=== PATIENT | female | born 1960 | race Caucasian/White ===

== ENCOUNTER → 2018-08-13 | Outpatient (CLI) | payer OTHER ==
[2018-08-13 17:41] LABS: BASO % 0.4 % (0.0-1.0); EOS % 2.3 % (0.0-3.0); IMMATURE GRANULOCYTE % 0.4 % (0-3.0); MEAN CORPUSCULAR HEMOGLOBIN 29.1 pg (27.0-33.0); MEAN CORPUSCULAR HGB CONC 32.6 g/dl (32.0-36.5); MEAN CORPUSCULAR VOLUME 89.4 fl (80.0-96.0); MONO % 11.8 % (0.0-5.0); NEUTROPHILS % 56.1 % (36.0-66.0); PLATELET COUNT, AUTOMATED 158 10^3/uL (150-450); RED BLOOD COUNT 4.81 10^6/uL (4.00-5.40); RED CELL DISTRIBUTION WIDTH 13.3 % (11.5-14.5); WHITE BLOOD COUNT 5.6 10^3/uL (4.0-10.0)
[2018-08-13 17:59] LABS: RHEUMATOID FACTOR QUANT < 10.0 IU/ML (<15.0)
[2018-08-13 17:59] LABS: C REACTIVE PROTEIN QUANTITATIV < 0.30 MG/DL (0.00-0.30)
[2018-08-13 19:55] LABS: ERYTHROCYTE SEDIMENTATION RATE 10 mm/hr (0-30)
[2018-08-17 00:07] LABS: ANTINUCLEAR ANTIBODIES DIRECT Negative (Negative); Lyme Disease IgG/IgM Antibodie <0.91 ISR (0.00-0.90); Lyme Disease IgM Ab Quantitati <0.80 index (0.00-0.79)
== END ==
LOC: M SMT 12:09
DX: G56.03 Carpal tunnel syndrome, bilateral upper limbs (principal)
CPT/HCPCS: 86140

== ENCOUNTER → 2018-10-04 | Outpatient (CLI) | payer OTHER ==
[2018-10-04 13:44] LABS: BASO % 0.2 % (0.0-1.0); EOS # 0.1 10^3/uL (0.0-0.50); HEMATOCRIT 43.4 % (36.0-47.0); HEMOGLOBIN 14.5 g/dl (12.0-15.5); IMMATURE GRANULOCYTE % 0.3 % (0-3.0); LYMPH # 1.5 10^3/uL (1.5-4.5); MEAN CORPUSCULAR HEMOGLOBIN 29.2 pg (27.0-33.0); MEAN CORPUSCULAR HGB CONC 33.4 g/dl (32.0-36.5); MEAN CORPUSCULAR VOLUME 87.5 fl (80.0-96.0); MONO # 0.8 10^3/uL (0.0-0.8); MONO % 13.2 % (0.0-5.0); NEUTROPHILS # 3.4 10^3/uL (1.8-7.7); NEUTROPHILS % 58.3 % (36.0-66.0); PLATELET COUNT, AUTOMATED 167 10^3/uL (150-450); RED BLOOD COUNT 4.96 10^6/uL (4.00-5.40); RED CELL DISTRIBUTION WIDTH 13.2 % (11.5-14.5); WHITE BLOOD COUNT 5.9 10^3/uL (4.0-10.0)
[2018-10-04 14:19] LABS: ALBUMIN 3.8 GM/DL (3.2-5.2); ALBUMIN/GLOBULIN RATIO 1.27 (1.00-1.93); ALKALINE PHOSPHATASE 99 U/L (45-117); ALT/SGPT 33 U/L (12-78); ANION GAP 4 MEQ/L (8-16); AST/SGOT 21 U/L (7-37); BILIRUBIN,TOTAL 0.4 MG/DL (0.2-1.0); BLOOD UREA NITROGEN 17 MG/DL (7-18); CALCIUM LEVEL 9.6 MG/DL (8.5-10.1); CARBON DIOXIDE LEVEL 30 MEQ/L (21-32); CHLORIDE LEVEL 107 MEQ/L (98-107); CREATININE FOR GFR 0.68 MG/DL (0.55-1.30); FREE T4 0.89 NG/DL (0.76-1.46); GLOMERULAR FILTRATION RATE > 60.0 (>51); GLUCOSE, FASTING 79 MG/DL (70-100); IMMUNOGLOBULIN A 172 MG/DL (70-400); POTASSIUM SERUM 4.1 MEQ/L (3.5-5.1); SODIUM LEVEL 141 MEQ/L (136-145); TOTAL PROTEIN 6.8 GM/DL (6.4-8.2)
[2018-10-06 00:06] LABS: TISSUE TRANSGLUTAMINASE IgA <2 U/mL (0-3)
== END ==
LOC: M LAB 12:55
DX: R10.13 Epigastric pain (principal)
CPT/HCPCS: 84443

== ENCOUNTER → 2018-10-06 | Outpatient (REF) | payer OTHER | LOC: M LAB REF 12:24 | DX: R10.13 Epigastric pain (principal) ==

== ENCOUNTER 2018-11-26 08:38 | Day surgery (SDC) | payer OTHER ==
[~2018-11-26] VITALS: Ht 149.9 cm; Wt 97.5 kg
[~2018-11-26 08:38] MED LIST: AMOX500T PO; CALC1TAB55 PO; CETI10CH PO; DICY20TA11; FLAX10002 PO; HM C500T3 PO; LUTE20TA PO; MOME50SP; MUCI60TA7 PO; OMEP20CA3 PO; PROBCAP4 PO; RED600TA PO; SAVITAB PO; SING10TA32 PO; VITA100067 PO; VITA400C7 PO; [UNRECOGNIZED DRUG - OTHER] PA
[2018-11-26] MEDS ORDERED: LIDOCAINE 2% INJ 100 MG/5 ML SDV (FOR ANES.) As Ordered ONE (08:47)
[2018-11-26] MEDS ORDERED: PROPOFOL 200 MG/20 ML VIAL As Ordered ONE ×2 (08:47→11:01)
--- NOTE | 2018-11-26 11:01 | ROOR ---
Patient Name: Sarah Devlin Procedure Date: 11/26/2018 10:43 AM Date of : 1960 Age: 58 Room: [facility] Gender: Female Note Status: Finalized Procedure: Upper GI endoscopy Indications: Heartburn, Nausea Providers: Addi JUNE MD Referring MD: LYNN COKER NP Requesting Provider: Medicines: Monitored Anesthesia Care Complications: No immediate complications. Procedure: Pre-Anesthesia Assessment: - The heart rate, respiratory rate, oxygen saturations, blood pressure, adequacy of pulmonary ventilation, and response to care were monitored throughout the procedure. The Endoscope was introduced through the mouth, and advanced to the third part of duodenum. The upper GI endoscopy was accomplished without difficulty. The patient tolerated the procedure well. Findings: The examined esophagus was normal. Multiple 4 to 5 mm semi-sessile fundic gland polyps were found in the gastric fundus and in the gastric body. Biopsies were taken with a cold forceps for histology. The entire examined stomach was normal. The examined duodenum was normal. Impression: - Normal esophagus. - Normal stomach with multiple small fundic gland polyps. Biopsied.. - Normal examined duodenum. Recommendation: - Observe patient's clinical course. - Continue present medications. - Consideration may be given to changing Omeprazole to [id number]. (Zantac or Pepcid) Addi June MD Addi JUNE MD 11/26/2018 11:01:04 AM This report has been signed electronically. Number of Addenda: 0 Note Initiated On: 11/26/2018 10:43 AM Estimated Blood Loss: Estimated blood loss: none.
--- NOTE | 2018-11-26 11:14 | ROOR ---
Patient Name: Sarah Devlin Procedure Date: 11/26/2018 10:43 AM Date of : 1960 Age: 58 Room: [facility] Gender: Female Note Status: Finalized Procedure: Colonoscopy Indications: Generalized abdominal pain, Change in bowel habits Providers: Addi JUNE MD Referring MD: LYNN COKER NP Requesting Provider: Medicines: Monitored Anesthesia Care Complications: No immediate complications. Procedure: Pre-Anesthesia Assessment: - The heart rate, respiratory rate, oxygen saturations, blood pressure, adequacy of pulmonary ventilation, and response to care were monitored throughout the procedure. The Colonoscope was introduced through the anus and advanced to the cecum, identified by appendiceal orifice and ileocecal valve. The colonoscopy was performed with difficulty due to inadequate bowel prep. The patient tolerated the procedure well. The quality of the bowel preparation was inadequate. Findings: The perianal and digital rectal examinations were normal. A 4 mm polyp was found in the sigmoid colon. The polyp was sessile. The polyp was removed with a cold snare. Resection and retrieval were complete. Mild sigmoid diverticulosis and small internal hemorrhoids. Impression: - Preparation of the colon was inadequate. - One 4 mm polyp in the sigmoid colon, removed with a cold snare. Resected and retrieved. - Mild sigmoid diverticulosis and small internal hemorrhoids. Recommendation: - Repeat colonoscopy in 1 year because the bowel preparation was suboptimal. Addi June MD Addi JUNE MD 11/26/2018 11:13:49 AM This report has been signed electronically. Number of Addenda: 0 Note Initiated On: 11/26/2018 10:43 AM Estimated Blood Loss: Estimated blood loss: none.
[2018-11-26 11:33] VITALS: BP 133/76
[2018-11-26] MEDS ORDERED: NS 1,000 ML IV ONE (12:00)
== END 2018-11-26 11:46 | disposition home or self-care (01) ==
LOC: M OPP 08:38
PROVIDERS: ATTEND Internal Medicine Gastroenterology
DX: R10.84 Generalized abdominal pain (principal); R19.4 Change in bowel habit; D12.5 Benign neoplasm of sigmoid colon; K57.30 Diverticulosis of large intestine without perforation or abscess without bleeding; K64.8 Other hemorrhoids; R12 Heartburn; R11.0 Nausea; K31.7 Polyp of stomach and duodenum

== ENCOUNTER → 2019-01-06 | Outpatient (CLI) | payer OTHER ==
[2019-01-06 13:48] LABS: BASO % 0.4 % (0.0-1.0); EOS # 0.2 10^3/uL (0.0-0.50); EOS % 2.6 % (0.0-3.0); HEMATOCRIT 43.5 % (36.0-47.0); HEMOGLOBIN 14.7 g/dl (12.0-15.5); LYMPH # 1.8 10^3/uL (1.5-4.5); LYMPH % 24.2 % (24.0-44.0); MEAN CORPUSCULAR HEMOGLOBIN 29.6 pg (27.0-33.0); MEAN CORPUSCULAR HGB CONC 33.8 g/dl (32.0-36.5); MEAN CORPUSCULAR VOLUME 87.5 fl (80.0-96.0); MONO % 13.4 % (0.0-5.0); NEUTROPHILS # 4.4 10^3/uL (1.8-7.7); PLATELET COUNT, AUTOMATED 180 10^3/uL (150-450); RED BLOOD COUNT 4.97 10^6/uL (4.00-5.40); WHITE BLOOD COUNT 7.4 10^3/uL (4.0-10.0)
[2019-01-06 14:22] LABS: ERYTHROCYTE SEDIMENTATION RATE 10 mm/hr (0-30)
[2019-01-06 20:00] LABS: C REACTIVE PROTEIN QUANTITATIV 0.44 MG/DL (0.00-0.30); RHEUMATOID FACTOR QUANT < 10.0 IU/ML (<15.0)
[2019-01-08 00:07] LABS: ANTINUCLEAR ANTIBODIES DIRECT Negative (Negative)
== END ==
LOC: M SMT 11:48
PROVIDERS: ATTEND Physician Assistant
DX: G56.23 Lesion of ulnar nerve, bilateral upper limbs (principal)

== ENCOUNTER → 2021-08-28 | Outpatient (REF) | payer BC ==
[~2021-08-28] MED LIST changes: -HM C500T3 PO; +HM C500T4 PO; +OMEP1CAP73 PO; -OMEP20CA3 PO
[2021-08-28 18:53] LABS: APPEARANCE, URINE HAZY (CLEAR); BACTERIA, URINE AUTO NEGATIVE (NEGATIVE); BILIRUBIN, URINE AUTO NEGATIVE (NEGATIVE); BLOOD, URINE BLOOD 1+ (NEGATIVE); COLOR, URINE YELLOW (YELLOW); GLUCOSE, URINE (UA) AUTO NEGATIVE (NEGATIVE); KETONE, URINE AUTO TRACE mg/dL (NEGATIVE); LEUKOCYTE ESTERASE, URINE AUTO NEGATIVE (NEGATIVE); MUCUS, URINE SMALL (NEGATIVE); NITRITE, URINE AUTO NEGATIVE (NEGATIVE); PROTEIN, URINE AUTO NEGATIVE (NEGATIVE); RBC, URINE AUTO 5 /HPF (0-3); SPECIFIC GRAVITY URINE AUTO 1.015 (1.002-1.035); SQUAMOUS EPITHELIAL CELL UR AU 0 /HPF (0-6); UROBILINOGEN, URINE AUTO 0.2 mg/dL (0.0-2.0); WBC, URINE AUTO 5 /HPF (0-3)
== END ==
LOC: M SMT 18:23
PROVIDERS: ATTEND Nurse Practitioner Women's Health
DX: N20.0 Calculus of kidney (principal)

== ENCOUNTER → 2021-11-06 | Outpatient (CLI) | payer BC ==
[~2021-11-06] MED LIST changes: -DICY20TA11; +DICY20TA20
== END ==
LOC: M PLAIMG 09:44
PROVIDERS: ATTEND Nurse Practitioner Women's Health
DX: N20.0 Calculus of kidney (principal)

== ENCOUNTER → 2023-01-08 | Outpatient (CLI) | payer BC ==
[~2023-01-08] MED LIST changes: -MOME50SP; +MONT-5 PO; +NASO50SP3; -SING10TA32 PO
== END ==
LOC: M WHC 12:53
PROVIDERS: ATTEND Nurse Practitioner Family
DX: Z12.31 Encounter for screening mammogram for malignant neoplasm of breast (principal)

== ENCOUNTER → 2023-11-17 | Outpatient (CLI) | payer OTHER ==
[~2023-11-17] MED LIST changes: +GASTROGRAFIN SOLUTION 30ML As Ordered ONE; +ISOVUE-370 76% 100ML VIAL As Ordered ONE
== END ==
LOC: M RAD 07:04
PROVIDERS: ATTEND Nurse Practitioner Family
DX: R10.9 Unspecified abdominal pain (principal)
CPT/HCPCS: 74177; Q9963; Q9967

== ENCOUNTER 2023-12-10 12:14 | Day surgery (SDC) | payer OTHER ==
[~2023-12-10] VITALS: Ht 149.9 cm; Wt 88.0 kg
[~2023-12-10 12:14] MED LIST changes: +ASPECRE TOP; +AZIT-12 PO; +D 10CAP PO; -GASTROGRAFIN SOLUTION 30ML As Ordered ONE; -ISOVUE-370 76% 100ML VIAL As Ordered ONE; +LUTE20CA11 PO; +MOME50SP2; +NAPR-849 PO; +ONDA-84 PO; +PROBCAP14 PO; +VITA100093 PO; +VITA400T26 PO; +[UNRECOGNIZED DRUG - OTHER] PO
[2023-12-10] MEDS ORDERED: LR 1,000 ML IV SCH ×2 (12:45→16:05)
[2023-12-10] MEDS ORDERED: LIDOCAINE 2% 100MG/5ML SDV (FOR ANES.) As Ordered ONE (13:29)
[2023-12-10] MEDS ORDERED: propofoL 500 MG/50 ML VIAL As Ordered ONE (13:29)
[2023-12-10] MEDS ORDERED: MIDAZOLAM INJ 2MG/2ML VIAL As Ordered ONE (13:29)
[2023-12-10] MEDS ORDERED: fentaNYL 100 MCG/2 ML INJECTION As Ordered ONE (13:29)
[2023-12-10] MEDS ORDERED: ONDANSETRON 4MG 2ML VIAL As Ordered ONE (14:16)
[2023-12-10] MEDS ORDERED: KETOROLAC 60MG 2ML VIAL As Ordered ONE (14:16)
[2023-12-10] MEDS: ceFAZolin SOD 2 GM in IV 1 EA IV ONE (14:21)
[2023-12-10] MEDS: ISOVUE-M 300 61% 15ML VIAL As Ordered ONE (14:31)
[2023-12-10] MEDS ORDERED: oxyCODONE 5MG TAB PO PRN (16:05)
[2023-12-10] MEDS ORDERED: ONDANSETRON 4MG 2ML VIAL IV PRN (16:05)
[2023-12-10] MEDS ORDERED: fentaNYL 100 MCG/2 ML INJECTION IV PRN (16:05)
[2023-12-10] MEDS ORDERED: OXYB-54 PO (16:26)
[2023-12-10 16:45] VITALS: BP 138/65; TEMP 97.1; O2SAT 95
== END 2023-12-10 17:28 | disposition home or self-care (01) ==
LOC: M SDC 12:14
PROVIDERS: ATTEND Urology
DX: N13.2 Hydronephrosis with renal and ureteral calculous obstruction (principal); Z90.49 Acquired absence of other specified parts of digestive tract; Z87.442 Personal history of urinary calculi; Z90.710 Acquired absence of both cervix and uterus; Z79.899 Other long term (current) drug therapy; Z88.2 Allergy status to sulfonamides; Z88.6 Allergy status to analgesic agent; Z88.8 Allergy status to other drugs, medicaments and biological substances
CPT/HCPCS: 52356; 76000; 82365; C2617; J0690; J1100; J1885; J2250; J2405; J3010; Q9967

== ENCOUNTER → 2024-01-11 | Outpatient (CLI) | payer OTHER ==
[~2024-01-11] MED LIST changes: +OXYB-54 PO
== END ==
LOC: M WHC 09:53
PROVIDERS: ATTEND Nurse Practitioner Family
DX: Z12.31 Encounter for screening mammogram for malignant neoplasm of breast (principal)

== ENCOUNTER 2024-08-26 07:02 | Day surgery (SDC) | payer OTHER ==
[~2024-08-26] VITALS: Ht 149.9 cm; Wt 91.2 kg
[2024-08-26] MEDS ORDERED: LR 1,000 ML IV SCH (07:45)
[2024-08-26] MEDS ORDERED: LIDOCAINE 2% 100MG/5ML SDV (FOR ANES.) As Ordered ONE (08:54)
[2024-08-26] MEDS ORDERED: propofoL 200 MG/20 ML VIAL As Ordered ONE (08:54)
[2024-08-26] MEDS ORDERED: fentaNYL 100 MCG/2 ML INJECTION As Ordered ONE (08:54)
[2024-08-26] MEDS ORDERED: MIDAZOLAM INJ 2MG/2ML VIAL As Ordered ONE (08:54)
[2024-08-26] MEDS ORDERED: ONDANSETRON 4MG 2ML VIAL As Ordered ONE (08:54)
[2024-08-26] MEDS ORDERED: KETOROLAC 60MG 2ML VIAL As Ordered ONE (08:56)
[2024-08-26] MEDS: ISOVUE-300 61% 100ML VIAL As Ordered ONE (09:40)
[2024-08-26] MEDS: ceFAZolin SOD 2 GM in IV 1 EA IV ONE (09:45)
[2024-08-26] MEDS ORDERED: oxyCODONE 5MG TAB PO PRN (11:20)
[2024-08-26] MEDS ORDERED: fentaNYL 100 MCG/2 ML INJECTION IV PRN (11:20)
[2024-08-26] MEDS ORDERED: ONDANSETRON 4MG 2ML VIAL IV PRN (11:20)
[2024-08-26] MEDS ORDERED: OXYB5TAB14 PO (11:53)
[2024-08-26] MEDS ORDERED: FLOM0.4C39 PO (11:53)
[2024-08-26] MEDS ORDERED: oxyBUTYnin 5 MG TAB PO PRN (12:30)
[2024-08-26] MEDS ORDERED: PERCOCET 5MG/325MG TAB PO PRN (12:30)
[2024-08-26 12:42] VITALS: BP 146/70; TEMP 97.8; O2SAT 98
== END 2024-08-26 12:52 | disposition home or self-care (01) ==
LOC: M SDC 07:02
PROVIDERS: ATTEND Urology
DX: N20.2 Calculus of kidney with calculus of ureter (principal); K57.92 Diverticulitis of intestine, part unspecified, without perforation or abscess without bleeding; K21.9 Gastro-esophageal reflux disease without esophagitis; F41.9 Anxiety disorder, unspecified; Z88.2 Allergy status to sulfonamides; Z88.8 Allergy status to other drugs, medicaments and biological substances; Z79.899 Other long term (current) drug therapy
CPT/HCPCS: 52356; 76000; 82365; C2617; J0690; J1100; J1885; J2250; J2405; J3010; Q9967

== ENCOUNTER → 2025-01-11 | Outpatient (CLI) | payer OTHER ==
[~2025-01-11] MED LIST changes: +FLOM0.4C39 PO; +OXYB5TAB14 PO
== END ==
LOC: M WHC 08:21
PROVIDERS: ATTEND Nurse Practitioner Family
DX: Z12.31 Encounter for screening mammogram for malignant neoplasm of breast (principal)

== ENCOUNTER → 2025-02-01 | Outpatient (CLI) | payer OTHER | LOC: M WHC 08:56 | PROVIDERS: ATTEND Nurse Practitioner Family | DX: M85.852 Other specified disorders of bone density and structure, left thigh (principal) ==